=== PATIENT | male | born 1960 | race African-American/Black ===

== ENCOUNTER 2016-04-16 06:35 | Emergency (ER) | payer BC ==
[2016-04-16 06:51] VITALS: BMI 25.2
--- NOTE | 2016-04-16 06:53 | PDOC ---
History of Present Illness - General History Source: Patient Exam Limitations: No Limitations - History of Present Illness Initial Comments: 04/16/16 06:59 The patient is a 55-year-old male with a significant past medical history of GERD, who presents to the emergency department with approximately 7 days of cough. The cough began as a dry cough, and became productive of yellow sputum on Wednesday. On Wednesday, he developed subjective fever and chills, and began to see "streaks of blood" in the yellow sputum. He has never had a cough productive of phani blood. He denies travel outside of the [facility] in the past year and a half. Approximately one and one half years ago, he did travel to [place] for 10 days, something that he does approximately every 2 years. He denies weight loss. He denies night sweats. He was born in [place]. He had a negative PPD approximately 5 years ago, administered by his primary care physician. He has no known exposure to tuberculosis. The patient denies recent travel/surgeries/immobility, lower extremity edema, calf pain or tenderness, tobacco use, hormone use, personal or family history of thrombosis. 04/16/16 07:02 04/16/16 08:16 <Clayton Mcdonough - Last Filed: 04/16/16 08:23> <Marla Hugo - Last Filed: 04/16/16 08:24> - General Chief Complaint: Hemoptysis Stated Complaint: COUGHING BLOOD Time Seen by Provider: 04/16/16 06:52 Past History - Past Medical History CVA: No (vertigo) COPD: (CHRONIC BRONCHITIS) Disorders: Yes (NEPHROLITHIASIS S/P ESWL) HTN: Yes Kidney Stones: Yes - Surgical History Orthopedic Surgery: Yes (RIGHT KNEE ARTHROSCOPY) - Immunization History Immunization Up to Date: Yes - Psycho/Social/Smoking Cessation Hx Anxiety: No Suicidal Ideation: No Smoking Status: No Smoking History: Never smoked Have you smoked in the past 12 months: No Number of Cigarettes Smoked Daily: 0 Cigars Per Day: 0 Information on smoking cessation initiated: No Hx Alcohol Use: No Drug/Substance Use Hx: No Substance Use Type: None Hx Substance Use Treatment: No <Clayton Mcdonough - Last Filed: 04/16/16 08:23> <Marla Hugo - Last Filed: 04/16/16 08:24> - Past Medical History Allergies/Adverse Reactions: Allergies Allergy/AdvReac Type Severity Reaction Status Date / Time doxycycline Allergy Unknown Verified 04/16/16 06:48 Penicillins Allergy Unknown Verified 04/16/16 06:48 Home Medications: Ambulatory Orders Propranolol HCl 10 mg PO BID 12/09/15 Albuterol Sulfate [Proair Respiclick] 90 mcg IH Q4H PRN 12/25/15 Ranitidine HCl [Zantac] 150 mg PO DAILY 12/25/15 Beclomethasone Dipropionate [Qvar] 8.7 gm IH BID 04/16/16 Benzonatate [Tessalon Pearls -] 100 mg PO TID PRN #21 capsule 04/16/16 Prednisone [Deltasone -] 50 mg PO DAILY #5 tablet 04/16/16 Review of Systems - Review of Systems Comments:: 04/16/16 07:00 CONSTITUTIONAL: Present: See history of present illness Absent: diaphoresis, generalized weakness, malaise, loss of appetite HEENT: Present: Rhinorrhea, nasal congestion Absent: throat pain, throat swelling, difficulty swallowing, mouth swelling, ear pain, eye pain, visual Changes CARDIOVASCULAR: Absent: chest pain, loss of consciousness, palpitations, irregular heart rate, peripheral edema RESPIRATORY: Present: Cough, hemoptysis Absent: shortness of breath, dyspnea with exertion, orthopnea, wheezing, stridor GASTROINTESTINAL: Absent: abdominal pain, abdominal distension, nausea, vomiting, diarrhea, constipation, melena, hematochezia GENITOURINARY: Absent: dysuria, frequency, urgency, hesitancy, hematuria, flank pain, genital pain MUSCULOSKELETAL: Absent: myalgia, arthralgia, joint swelling SKIN: Absent: rash, itching, pallor HEMATOLOGIC/IMMUNOLOGIC: Absent: easy bleeding, easy bruising, lymphadenopathy, frequent infections ENDOCRINE: Absent: unexplained weight gain, unexplained weight loss, heat intolerance, cold intolerance NEUROLOGIC: Absent: headache, focal weakness or paresthesias, dizziness, unsteady gait, seizure, mental status changes, bladder or bowel incontinence PSYCHIATRIC: Absent: anxiety, depression, suicidal or homicidal ideation, hallucinations. 04/16/16 07:01 <Clayton Mcdonough - Last Filed: 04/16/16 08:23> *Physical Exam - Vital Signs Last Vital Signs Temp Pulse Resp BP Pulse Ox 97.6 F 80 20 139/79 100 04/16/16 06:49 04/16/16 06:49 04/16/16 06:49 04/16/16 06:49 04/16/16 06:49 - Physical Exam Comments: 04/16/16 07:01 GENERAL: Well developed, well nourished. Awake and alert. No acute distress. HEENT: Normocephalic, atraumatic. PERRLA, EOMI. No conjunctival pallor. Sclera are non- icteric. Moist mucous membranes. Oropharynx is clear. NECK: Supple. Full ROM. No JVD. Carotid pulses 2+ and symmetric, without bruits. No thyromegaly. No lymphadenopathy. CARDIOVASCULAR: Regular rate and rhythm. No murmurs, rubs, or gallops. Distal pulses are 2+ and symmetric. PULMONARY: Post inspiratory cough. No evidence of respiratory distress. Lungs clear to auscultation bilaterally. No wheezing, rales or rhonchi. ABDOMINAL: Soft. Non-tender. Non-distended. No rebound or guarding. No organomegaly. Normoactive bowel sounds. MUSCULOSKELETAL Normal range of motion at all joints. No bony deformities or tenderness. No CVA tenderness. EXTREMITIES: No cyanosis. No clubbing. No edema. No calf tenderness. SKIN: Warm and dry. Normal capillary refill. No rashes. No jaundice. NEUROLOGICAL: Alert, awake, appropriate. Cranial nerves 2-12 intact. No deficits to light touch and temperature in face, upper extremities and lower extremities. No motor deficits in the in face, upper extremities and lower extremities. Normoreflexic in the upper and lower extremities. Normal speech. Toes are down- going bilaterally. Gait is normal without ataxia. PSYCHIATRIC: Cooperative. Good eye contact. Appropriate mood and affect. <Clayton Mcdonough - Last Filed: 04/16/16 08:23> - Vital Signs Last Vital Signs Temp Pulse Resp BP Pulse Ox 97.6 F 80 20 139/79 100 04/16/16 06:49 04/16/16 06:49 04/16/16 06:49 04/16/16 06:49 04/16/16 06:49 <Marla Hugo - Last Filed: 04/16/16 08:24> ED Treatment Course - LABORATORY CBC & Chemistry Diagram: 04/16/16 07:05 04/16/16 07:05 <Clayton Mcdonough - Last Filed: 04/16/16 08:23> - LABORATORY CBC & Chemistry Diagram: 04/16/16 07:05 04/16/16 07:05 - ADDITIONAL ORDERS Additional order review: Laboratory Results 04/16/16 04/16/16 07:05 07:05 INR 1.19 H PTT (Actin FS) 29.8 Sodium 142 Potassium 3.5 Chloride 106 Carbon Dioxide 31 Anion Gap 5 L BUN 17 D Creatinine 1.2 Creat Clearance w eGFR > 60 Random Glucose 104 Calcium 8.7 Total Bilirubin 0.4 D AST 14 L D ALT 28 Alkaline Phosphatase 101 Total Protein 7.2 Albumin 3.6 04/16/16 07:05 RBC 4.09 MCV 99.7 H MCHC 33.3 RDW 13.0 MPV 9.2 Neutrophils % 62.4 Lymphocytes % 26.4 Monocytes % 10.6 H Eosinophils % 0.4 Basophils % 0.2 <Marla Hugo - Last Filed: 04/16/16 08:24> Medical Decision Making - Medical Decision Making 04/16/16 07:02 The patient is well-appearing and in no acute distress He has physical examination evidence of bronchospasm, as evidenced by post inspiratory cough Will obtain labs, chest x-ray Will administer duo neb 04/16/16 08:16 Symptoms much improved after nebulizer He states that he feels "completely better" and would like to go home Chest x-ray emergency Department interpretation: No acute cardiopulmonary disease 04/16/16 08:16 04/16/16 08:23 Labs noted Official chest x-ray reading noted Clinical impression: Bronchitis Cough I discussed the physical exam findings, ancillary test results and final diagnoses with the patient. I answered all of the patient's questions. The patient was satisfied with the care received and felt comfortable with the discharge plan and treatment plan. The patient will call their primary care physician within 24 hours to arrange follow-up and will return to the Emergency Department with any new, persistent or worsening symptoms. <Clayton Mcdonough - Last Filed: 04/16/16 08:23> - Medical Decision Making 04/16/16 08:24 Chest X-ray as reviewed by Dr. Yu reports no evidence of active pulmonary disease. <Marla Hguo - Last Filed: 04/16/16 08:24> *DC/Admit/Observation/Transfer <Clayton Mcdonough - Last Filed: 04/16/16 08:23> - Attestations Scribe Attestion: 04/16/16 08:24 Documentation prepared by Marla Hugo, acting as medical billing associate for Clayton Mcdonough MD. <Marla Hugo - Last Filed: 04/16/16 08:24> Diagnosis at time of Disposition: Bronchitis - Discharge Dispostion Disposition: HOME Condition at time of disposition: Improved - Prescriptions Prescriptions: Prednisone [Deltasone -] 50 mg PO DAILY #5 tablet Benzonatate [Tessalon Pearls -] 100 mg PO TID PRN #21 capsule PRN Reason: Cough - Referrals Referrals: Vic Valle [Primary Care Provider] - - Patient Instructions Printed Discharge Instructions: DI for Acute Bronchitis Additional Instructions: Return to the emergency department immediately with ANY new, persistent or worsening symptoms. You MUST call and follow up with your doctor tomorrow. Please make sure your doctor reviews the results of your emergency department evaluation. - Post Discharge Activity Work/School Note: Back to Work
[2016-04-16] MEDS ORDERED: ALBUTEROL SO4 2.5/IPRATROPIUM 0.5 INH SOL 3 ML VIAL.NEB. NEB ONE (06:58)
[2016-04-16 07:33] LABS: BASOPHIL 0.2 % (0-2.0); EOSINOPHIL 0.4 % (0-4.5); MCH 33.2 pg (25.7-33.7); MCHC 33.3 g/dl (32.0-35.9); MEAN CELL VOLUME 99.7 fl (80-96); MEAN PLT VOLUME 9.2 fl (7.5-11.1); NEUTROPHILS 62.4 % (42.8-82.8); PLATELET COUNT 152 K/MM3 (134-434); WHITE BLOOD COUNT 7.1 K/mm3 (4.0-10.0)
[2016-04-16 07:56] LABS: INR 1.19 (0.82-1.09); PROTHROMBIN TIME (PATIENT) 13.1 SEC (9.98-11.88)
[2016-04-16 07:58] LABS: ACTIVATED PTT 29.8 SECONDS (26.9-34.4)
[2016-04-16] MEDS ORDERED: predniSONE 20 MG TABLET (UD) PO ONE (08:18)
[2016-04-16 08:20] LABS: ALBUMIN 3.6 g/dl (3.4-5.0); ALK PHOS 101 U/L (45-117); ANION GAP 5 (8-16); BILIRUBIN,TOTAL 0.4 mg/dL (0.2-1.0); CALCIUM 8.7 mg/dL (8.5-10.1); CO2 31 mmol/L (21-32); CREATININE 1.2 mg/dL (0.7-1.3); GLUCOSE,RANDOM 104 mg/dL (74-106); SGOT/AST 14 U/L (15-37); SGPT/ALT 28 U/L (12-78); TOT PROT 7.2 g/dl (6.4-8.2)
[2016-04-16 10:32] VITALS: BP 132/68; PULSE 85; TEMP 98
== END 2016-04-16 08:22 | disposition home or self-care (01) ==
LOC: JER 06:35
DX: J20.9 Acute bronchitis, unspecified (principal)
CPT/HCPCS: 36415; 71020-TC; 80053; 85025; 85610; 85730; 99282-25

== ENCOUNTER 2016-05-26 06:51 | Day surgery (SDC) | payer BC ==
[2016-05-21 17:42] VITALS: BMI 23.6
[2016-05-26] MEDS ORDERED: COCAINE HCL 4% TOPICAL SOLUTION 4 ML BOTTLE TP ONE ×2 (07:30→08:24)
[2016-05-26] MEDS ORDERED: PROPOFOL 20 ML ONE (07:34)
[2016-05-26] MEDS ORDERED: MIDAZOLAM HCL 2 MG/2 ML SINGLE DOSE VIAL ONE (07:34)
[2016-05-26] MEDS ORDERED: SUCCINYLCHOLINE CHLORIDE 200 MG/10 ML VIAL ONE (07:34)
[2016-05-26] MEDS ORDERED: LIDOCAINE HCL/PF 2% SDV 5ML VIAL ONE (07:37)
[2016-05-26] MEDS ORDERED: DEXAMETHASONE SOD PHOSPHATE 4 MG/1 ML VIAL ONE (07:37)
[2016-05-26] MEDS ORDERED: LIDOCAINE 1%/EPI 1:100000 (50 ML MULTI DOSE VIAL) ONE (07:47)
--- NOTE | 2016-05-26 08:01 | HP ---
Admitting History and Physical - Primary Care Physician PCP: Vic Valle - Admission Chief Complaint: Chronic sinus infections History Source: Patient, Medical Record Limitations to Obtaining History: No Limitations - Past Medical History CONNIE SCRATCHER: Yes: Migraine Cardiovascular: No: AFIB, Aneurysm, Aortic Insufficiency, Aortic Stenosis, CAD, CHF, Deep Vein Thrombosis, HTN, Hyperlipdemia, DC, Mitral Insufficiency, Mitral Stenosis, Murmur, Pulmonary Hypertension, Other Pulmonary: No: Asthma, Bronchitis, Cancer, COPD, O2 Dependent, Pneumonia, Previously Intubated, Pulmonary Embolus, Pulmonary Fibrosis, Sleep Apnea, Other Gastrointestinal: No: Ascites, Cancer, Constipation, Crohn's Disease, Diverticulitis, Diverticulosis, Esophageal Varices, Gastritis, GERD, GI Bleed, Hemorrhoids, Hiatal Hernia, Inflamatory Bowel Disease, Irritable Bowel Disease, Pancreatitis, Peptic Ulcer Disease, Ulcerative Colitis, Other Hepatobiliary: No: Cirrhosis, Cholelithiasis, Cholecystitis, Choledocholithiasis , Hepatitis A, Hepatitis B, Hepatitis C, Other Renal/: No: Renal Failure, Renal Inusuff, BPH, Cancer, Hematuria, Hemodialysis , Neurogenic Bladder, Renal Calculi, UTI, Other Heme/Onc: No: Anemia, B12 Deficiency, Bleeding Disorder, Cancer, Current Chemotherapy, Current Radiation Therapy, Hemochromatosis, Hypercoaguable State, Myeloproliferative Synd, Sickle Cell Disease, Sickle Cell Trait, Thrombocytopenia, Other Infectious Disease: No: AIDS, C-Diff, Herpes Zoster, HIV, MRSA, STD's, Tuberculosis, VREF, Other Psych: No: Addictions, Anxiety, Bipolar, Depression, Panic, Psychosis, Schizophrenia, Other Musculoskeletal: No: Bursitis, Chronic low back pain, Hemiparesis, Hemiplegia, Osteoarthritis, Paraplegia, Other Rheumatology: No: Fibromyalgia, Gout, Lupus, Rheumatoid Arthritis, Sarcoidosis, Vasculitis, Other ENT: Yes: Sinusitis - Smoking History Smoking history: Never smoked Have you smoked in the past 12 months: No Aproximately how many cigarettes per day: 0 - Alcohol/Substance Use Hx Alcohol Use: No Home Medications - Allergies Allergies/Adverse Reactions: Allergies Allergy/AdvReac Type Severity Reaction Status Date / Time doxycycline Allergy Severe "HIVES" Verified 05/26/16 07:23 Penicillins Allergy Severe "HIVES" Verified 05/26/16 07:23 - Home Medications Home Medications: Ambulatory Orders Propranolol HCl 10 mg PO BID 12/09/15 Omeprazole 20 mg PO DAILY 05/21/16 Physical Examination Vital Signs: Vital Signs Temperature 97.6 F 05/26/16 07:22 Pulse Rate 70 05/26/16 07:22 Respiratory Rate 20 05/26/16 07:22 Blood Pressure 136/90 05/26/16 07:22 O2 Sat by Pulse Oximetry (%) 98 05/26/16 07:18 Constitutional: Yes: Well Nourished Eyes: Yes: WNL HENT: Yes: WNL, Other (turbinate hypertrophy) Neck: Yes: WNL Cardiovascular: Yes: WNL Respiratory: Yes: WNL Gastrointestinal: Yes: WNL Musculoskeletal: Yes: WNL Extremities: Yes: WNL Problem List - Problems (1) Sinusitis Assessment/Plan: For improvement of sinus drainage Code(s): J32.9 - CHRONIC SINUSITIS, UNSPECIFIED Qualifiers: Sinusitis location: other Chronicity: acute Recurrence: recurrent Qualified Code(s): J01.81 - Other acute recurrent sinusitis
[2016-05-26] MEDS ORDERED: LEVOFLOXACIN 500 MG PREMIX BAG IVPB ONE (08:21)
[2016-05-26] MEDS ORDERED: LEVOFLOXACIN 500 MG IVPB 100 ML IVPB ONE (08:21)
[2016-05-26] MEDS ORDERED: LIDOCAINE 1%/EPI 1:100000 (50 ML MULTI DOSE VIAL) INF ONE (08:23)
[2016-05-26] MEDS ORDERED: BACITRACIN 30 GM TUBE TOPICAL OINTMENT ONE (08:48)
[2016-05-26] MEDS ORDERED: BACITRACIN 30 GM TUBE TOPICAL OINTMENT TP ONE (08:49)
[2016-05-26] MEDS ORDERED: oxyCODONE HCL 5 MG TABLET PO PRN (09:19)
[2016-05-26] MEDS ORDERED: ONDANSETRON 4 MG/2 ML VIAL IVPUSH PRN (09:19)
[2016-05-26] MEDS ORDERED: LACTATED RINGERS SOLUTION 1,000 ML IV SCH (09:30)
[2016-05-26 11:19] VITALS: TEMP 97.8
[2016-05-26 11:55] VITALS: BP 130/80; PULSE 78
--- NOTE | 2016-06-01 21:24 | OP ---
DATE OF OPERATION: 05/26/2016 PREOPERATIVE DIAGNOSIS: Recurrent sinusitis and chronic sinusitis, turbinate hypertrophy, nasal congestion. POSTOPERATIVE DIAGNOSIS: Recurrent sinusitis and chronic sinusitis, turbinate hypertrophy, nasal congestion. SURGEON: Teo Teran MD ANESTHESIA: General. PROCEDURE: Bilateral frontal sinus balloon dilation, bilateral maxillary antrostomy and tissue removal, inferior turbinate outfracturing and cautery, sinus navigation. PROCEDURE DETAILS: Patient was brought in to the operating room, placed under general anesthesia. The sinus navigation instrument was calibrated on the patient's after the nose was decongested with 4% topical cocaine and injection of 1% lidocaine with 1:100,000 epinephrine. A left frontal seeker was used to cannulate the frontal sinus on the left side and a frontal sinus balloon was insufflated twice with 5-second expansion each time. The right frontal sinus was then cannulated with a seeker and then balloon dilated twice with a 5-second insufflation. Cottonoids were placed into both frontal recesses and the left cottonoid was removed and then the maxillary sinus was cannulated using a Medtronic-guided balloon. Two insufflations were performed on the left side and cottonoids were placed back into the middle meatus. Balloon dilation was performed on the right side with Medtronic balloon with 2 separate insufflations, after which a curved suction was used to cannulate the left maxillary sinus under visualization and using the guidance. The contents of the maxillary sinus were suctioned and a lavage was performed with 2 separate instillations of saline. The contents were suctioned basically, then the right maxillary sinus was cannulated and irrigated twice with saline. The inferior turbinates were outfractured with a long nasal speculum and bipolar intermittent cautery was used to cauterize both inferior turbinates, 1st the left, then the right, with 3 separate passes on each side with a setting of 4. Bacitracin was instilled into both nostrils and the patient was awakened in the operating room and brought to the recovery room in stable condition. TEO TERAN M.D. [id number]
== END 2016-05-26 11:54 | disposition home or self-care (01) ==
LOC: JASU-SURG 06:51
PROVIDERS: ATTEND Otolaryngology
PROC: 09SL8ZZ Reposition Nasal Turbinate, Via Natural or Artificial Opening Endoscopic (ICD-10-PCS; 2016-05-26)
PROC: 099R4ZZ Drainage of Left Maxillary Sinus, Percutaneous Endoscopic Approach (ICD-10-PCS; 2016-05-26)
PROC: 099Q4ZZ Drainage of Right Maxillary Sinus, Percutaneous Endoscopic Approach (ICD-10-PCS; 2016-05-26)
PROC: 097G8ZZ Dilation of Left Eustachian Tube, Via Natural or Artificial Opening Endoscopic (ICD-10-PCS; principal; 2016-05-26 08:00)
PROC: 097F8ZZ Dilation of Right Eustachian Tube, Via Natural or Artificial Opening Endoscopic (ICD-10-PCS; 2016-05-26 08:00)
DX: J32.8 Other chronic sinusitis (principal); J34.3 Hypertrophy of nasal turbinates; R09.81 Nasal congestion
CPT/HCPCS: 94760

== ENCOUNTER 2016-06-22 07:25 | Emergency (ER) | payer BC ==
--- NOTE | 2016-06-22 07:59 | PDOC ---
History of Present Illness - General History Source: Patient, Old Records Exam Limitations: No Limitations - History of Present Illness Initial Comments: 06/22/16 08:05 The patient is a 55-year-old man, with a significant past medical history of hypertension, vertigo, migraine headaches, nephrolithiasis status post ESWL, and bronchitis who presents to the emergency department via walk-in for further evaluation of a persistent cough for the past 2 weeks. No fever, chills, generalized weakness. As per patient, he recently underwent a sinus surgery, approximately 2 weeks ago. Post procedure, he noted that he had endorsed an intermittent non-productive cough. He states that he ultimately saw blood when he blew his nose and when he coughed. He followed up with his doctor, and informed him about his new symptoms. He states that he was informed that his symptoms are typical and normal post procedure and was recommended saline drops and placed on antibiotics. His symptoms worsened when he started to feel an intermittent non-radiating mid-sternal chest pressure sensation, yesterday, while laying down and watching a sports game. No fall, trauma, strenuous activity. He states that his chest pain is worst when he breathes. He also reports experiencing his typical migraine headaches, and took two Tylenol tablets which helps with his headache and helped minimally with his chest pain. Patient had a recent echocardiogram and stress test performed on August of 2015 which revealed a mild concentric left ventricular hypertrophy, mild mitral regurgitation, trace tricuspid regurgitation and trace pulmonic valvular regurgitation and his stress test was indicative for a diaphragmatic attenuation artficat without ischemia wth a LVEF of 56% No history of myocardial infarctions and heart disease. No lightheadedness, visual changes, dizziness, neck pain, jaw pain, headaches, shortness of breath, rhinorrhea, nasal congestion, ear pain. No abdominal pain, nausea, vomiting, diarrhea. Allergies: Doxycycline. Penicillin Past Surgical History: Right knee arthroscopy. Social History: No tobacco, ETOH or recreational drug use. Primary Care Physician: Jayant Gomez NP [phone] <Mora Cristina - Last Filed: 06/22/16 08:28> - General History Source: Patient, Old Records Exam Limitations: No Limitations <Sharyn Cooper - Last Filed: 06/22/16 09:40> - General Chief Complaint: Chest Pain Stated Complaint: CHEST PAIN Time Seen by Provider: 06/22/16 07:52 Past History <CristinaCastro maldonadoine - Last Filed: 06/22/16 08:28> - Past Medical History CVA: (vertigo) COPD: Yes (CHRONIC BRONCHITIS) Disorders: Yes (NEPHROLITHIASIS S/P ESWL) HTN: Yes Kidney Stones: Yes - Surgical History Orthopedic Surgery: Yes (RIGHT KNEE ARTHROSCOPY) - Immunization History Immunization Up to Date: Yes - Psycho/Social/Smoking Cessation Hx Anxiety: No Suicidal Ideation: No Smoking Status: No Smoking History: Never smoked Have you smoked in the past 12 months: No Number of Cigarettes Smoked Daily: 0 Cigars Per Day: 0 Hx Alcohol Use: No Drug/Substance Use Hx: No Substance Use Type: None Hx Substance Use Treatment: No <Sharyn Cooper - Last Filed: 06/22/16 09:40> - Past Medical History Allergies/Adverse Reactions: Allergies Allergy/AdvReac Type Severity Reaction Status Date / Time doxycycline Allergy Severe "HIVES" Verified 06/22/16 07:42 Penicillins Allergy Severe "HIVES" Verified 06/22/16 07:42 Home Medications: Ambulatory Orders Propranolol HCl 10 mg PO BID 12/09/15 Beclomethasone Dipropionate [Qvar] 8.7 gm IH PRN 06/22/16 Ibuprofen 800 mg PO QID #30 tablet 06/22/16 Review of Systems - Review of Systems Able to Perform ROS?: Yes Comments:: 06/22/16 08:05 GENERAL/CONSTITUTIONAL: No fever or chills. No weakness. HEAD, EYES, EARS, NOSE AND THROAT: No change in vision. No ear pain or discharge. No sore throat. CARDIOVASCULAR: Yes: Chest Pain. No chest pain RESPIRATORY: Yes: Cough. Hemoptysis. No wheezing. GASTROINTESTINAL: No nausea, vomiting, diarrhea or constipation. GENITOURINARY: No dysuria, frequency, or change in urination. MUSCULOSKELETAL: No joint or muscle swelling or pain. No neck or back pain. SKIN: No rash NEUROLOGIC: Yes: Headache. No lss of consciousness, or change in strength/ sensation. ENDOCRINE: No increased thirst. No abnormal weight change. HEMATOLOGIC/LYMPHATIC: No anemia, easy bleeding, or history of blood clots. ALLERGIC/IMMUNOLOGIC: No hives or skin allergy. <Cristina,Mora - Last Filed: 06/22/16 08:28> *Physical Exam - Vital Signs Last Vital Signs Temp Pulse Resp BP Pulse Ox 97.7 F 79 18 150/93 100 06/22/16 07:25 06/22/16 07:25 06/22/16 07:25 06/22/16 07:25 06/22/16 07:25 - Physical Exam Comments: 06/22/16 08:06 GENERAL: Awake, alert, and fully oriented, in no acute distress HEAD: No signs of trauma EYES: PERRLA, EOMI, sclera anicteric, conjunctiva clear ENT: Auricles normal inspection, hearing grossly normal, nares patent, oropharynx clear without exudates. Moist mucosa NECK: Normal ROM, supple, no lymphadenopathy, JVD, or masses CHEST: There is some tenderness to palpation at the lower sternal border. LUNGS: Limited inspiratory effort but otherwise clear to auscultation bilaterally. No wheezes, and no crackles HEART: Regular rate and rhythm, normal S1 and S2, no murmurs, rubs or gallops ABDOMEN: Soft, nontender, normoactive bowel sounds. No guarding, no rebound. No masses EXTREMITIES: Normal range of motion, no edema. No clubbing or cyanosis. No cords, erythema, or tenderness NEUROLOGICAL: Cranial nerves II through XII grossly intact. Normal speech, normal gait. <IbethMora - Last Filed: 06/22/16 08:28> - Vital Signs Last Vital Signs Temp Pulse Resp BP Pulse Ox 97.7 F 79 18 150/93 100 06/22/16 07:25 06/22/16 07:25 06/22/16 07:25 06/22/16 07:25 06/22/16 07:25 <Sharyn Cooper - Last Filed: 06/22/16 09:40> ED Treatment Course - LABORATORY CBC & Chemistry Diagram: 06/22/16 08:05 06/22/16 08:05 - RADIOLOGY Radiograph Interpretation: 06/22/16 08:28 EXAM: RAD/CHEST X-RAY PORTABLE IMPRESSION: Frontal view of the chest is provided. Lung ortiz appear clear without infiltrate or effusion. Cardiomediastinal silhouette is within normal limits. Visualized bony structures appear intact. <Mora Cristina - Last Filed: 06/22/16 08:28> - LABORATORY CBC & Chemistry Diagram: 06/22/16 08:05 06/22/16 08:05 <Sharyn Cooper - Last Filed: 06/22/16 09:40> Medical Decision Making - Medical Decision Making 06/22/16 08:55 55-year-old male with history of sinusitis, hypertension who presents to the emergency department with complaints of 1 week history of cough and chest pain since yesterday that is constant and worse with deep inspiration and cough. Differential diagnosis includes but is not limited to: Pneumonia, influenza, musculoskeletal strain, ACS, pneumothorax, GERD, rib fracture. Plan: 1. EKG 2. Chest x-ray 3. Influenza PCR 4. Labs 5. Pain management 6. Observe and reevaluate 06/22/16 09:36 Addendum: The patient received Toradol and is feeling improved. The EKG was unremarkable and the labs were significant for a negative troponin as well as a negative influenza PCR. The chest x-ray is negative for acute pulmonary disease. The plan is to discharge the patient home with ibuprofen 800 mg every 6 -8 hours as needed for pain, follow-up with primary care physician within one week and return to the emergency department if symptoms persist, worsen, or new symptoms arise. <Sharyn Cooper - Last Filed: 06/22/16 09:40> *DC/Admit/Observation/Transfer - Attestations Scribe Attestion: 06/22/16 08:06 Documentation prepared by Mora Cristina, acting as medical affairs specialist for Sharyn Cooper MD. <Mora Cristina - Last Filed: 06/22/16 08:28> - Discharge Dispostion Admit: No - Attestations Physician Attestion: 06/22/16 08:00 I, Dr. Sharyn Cooper, attest that the scribes documentation that appears above has been prepared under my direction and personally reviewed by me in its entirety. I confirmed that the note above accurately reflects all work, treatment, procedures, and medical decision-making performed by me. <Sharyn Cooper - Last Filed: 06/22/16 09:40> Diagnosis at time of Disposition: Chest pain - Discharge Dispostion Disposition: HOME Condition at time of disposition: Stable - Prescriptions Prescriptions: Ibuprofen 800 mg PO QID #30 tablet - Referrals Referrals: Jayant Gomez [Primary Care Provider] - - Patient Instructions Printed Discharge Instructions: DI for Atypical Chest Pain Additional Instructions: You may take ibuprofen 800 mg every 6-8 hours as needed for pain in your chest. Please follow-up with your primary care physician within the next week and return to the emergency department if your symptoms persist, worsen, or new symptoms arise.
[2016-06-22] MEDS ORDERED: KETOROLAC TROMETHAMINE 30 MG/1 ML VIAL IVPUSH ONE (08:01)
[2016-06-22] MEDS ORDERED: KETOROLAC TROMETHAMINE 30 MG/1 ML VIAL ONE (08:09)
[2016-06-22 08:17] VITALS: TEMP 97.7; BMI 24.7
[2016-06-22 08:21] LABS: BASOPHIL 0.4 % (0-2.0); MCH 32.8 pg (25.7-33.7); MCHC 33.1 g/dl (32.0-35.9); MEAN PLT VOLUME 9.2 fl (7.5-11.1); NEUTROPHILS 49.1 % (42.8-82.8); PLATELET COUNT 146 K/MM3 (134-434); RDW 14.1 % (11.9-15.9); WHITE BLOOD COUNT 3.4 K/mm3 (4.0-10.0)
[2016-06-22 08:55] LABS: ALBUMIN 3.6 g/dl (3.4-5.0); ALK PHOS 113 U/L (45-117); ANION GAP 9 (8-16); BILIRUBIN,TOTAL 0.4 mg/dL (0.2-1.0); CALCIUM 8.9 mg/dL (8.5-10.1); CO2 28 mmol/L (21-32); CREATININE 1.3 mg/dL (0.7-1.3); GLUCOSE,RANDOM 124 mg/dL (74-106); SGOT/AST 19 U/L (15-37); SGPT/ALT 26 U/L (12-78); TOT PROT 7.2 g/dl (6.4-8.2)
[2016-06-22 08:57] LABS: TROPONIN I < 0.02 ng/ml (0.00-0.05)
[2016-06-22 09:54] VITALS: BP 125/80; PULSE 74
--- NOTE | 2016-06-26 10:13 | EKG ---
Test Reason : Blood Pressure : / mmHG Vent. Rate : 078 BPM Atrial Rate : 078 BPM P-R Int : 200 ms QRS Dur : 108 ms QT Int : 378 ms P-R-T Axes : 069 -57 049 degrees QTc Int : 430 ms NORMAL SINUS RHYTHM POSSIBLE LEFT ATRIAL ENLARGEMENT INCOMPLETE RIGHT BUNDLE BRANCH BLOCK LEFT ANTERIOR FASCICULAR BLOCK ABNORMAL ECG Confirmed by INGRIS RICE MD ([id number]) on 06/26/2016 10:12:28 AM Referred By: Confirmed By:INGRIS RICE MD
== END 2016-06-22 09:53 | disposition home or self-care (01) ==
LOC: JER 07:25
PROC: 3E0333Z Introduction of Anti-inflammatory into Peripheral Vein, Percutaneous Approach (ICD-10-PCS; principal; 2016-06-22)
DX: R07.89 Other chest pain (principal); I10 Essential (primary) hypertension; R42 Dizziness and giddiness; G43.909 Migraine, unspecified, not intractable, without status migrainosus; Z87.442 Personal history of urinary calculi
CPT/HCPCS: 36415; 71010-TC; 80053; 82550; 82553; 84484; 85025; 87804; 93005; 93010; 99283-25

== ENCOUNTER 2016-09-07 12:03 | Emergency (ER) | payer BC ==
[2016-09-07 12:14] VITALS: TEMP 97.7; BMI 24.3
--- NOTE | 2016-09-07 14:17 | PDOC ---
History of Present Illness - General History Source: Patient Exam Limitations: No Limitations - History of Present Illness Initial Comments: 09/07/16 16:33 The patient is a 55 year old male with a significant past medical history of hypertension, vertigo, migraine headaches, nephrolithiasis status post ESWL, and bronchitis, who present to the ED with an episode of lightheadedness while at work today. Patient states it lasted for an hour. He denies chest pain, SOB.He also complains of feeling warm all over his body. He states he has never had similar symptoms in the past. He denies syncope. Denies nausea vomiting, diarrhea abdominal pain. Denies dysuria, hematuria, frequency. <Guero Moreira - Last Filed: 09/07/16 16:32> <Penelope Thompson - Last Filed: 09/07/16 18:04> - General Chief Complaint: Lightheaded Stated Complaint: DIZZINESS, BLURRY VISION Time Seen by Provider: 09/07/16 13:02 Past History <Guero Moreira - Last Filed: 09/07/16 16:32> - Past Medical History CVA: (vertigo) COPD: Yes (CHRONIC BRONCHITIS) Disorders: Yes (NEPHROLITHIASIS S/P ESWL) HTN: Yes Kidney Stones: Yes - Surgical History Orthopedic Surgery: Yes (RIGHT KNEE ARTHROSCOPY) - Immunization History Immunization Up to Date: Yes - Psycho/Social/Smoking Cessation Hx Anxiety: No Suicidal Ideation: No Smoking Status: No Smoking History: Never smoked Have you smoked in the past 12 months: No Number of Cigarettes Smoked Daily: 0 Cigars Per Day: 0 Information on smoking cessation initiated: No Hx Alcohol Use: No Drug/Substance Use Hx: No Substance Use Type: None Hx Substance Use Treatment: No <Penelope Thompson - Last Filed: 09/07/16 18:04> - Past Medical History Allergies/Adverse Reactions: Allergies Allergy/AdvReac Type Severity Reaction Status Date / Time doxycycline Allergy Severe "HIVES" Verified 09/07/16 12:11 Penicillins Allergy Severe "HIVES" Verified 09/07/16 12:11 Home Medications: Ambulatory Orders Propranolol HCl 10 mg PO BID 12/09/15 Beclomethasone Dipropionate [Qvar] 8.7 gm IH PRN 06/22/16 Ibuprofen 800 mg PO QID #30 tablet 06/22/16 Review of Systems - Review of Systems Able to Perform ROS?: Yes Comments:: 09/07/16 16:33 GENERAL/CONSTITUTIONAL: No fever or chills. No weakness. HEAD, EYES, EARS, NOSE AND THROAT: No change in vision. No ear pain or discharge. No sore throat. CARDIOVASCULAR: No chest pain or shortness of breath. RESPIRATORY: No cough, wheezing, or hemoptysis. GASTROINTESTINAL: No nausea, vomiting, diarrhea or constipation. GENITOURINARY: No dysuria, frequency, or change in urination. MUSCULOSKELETAL: No joint or muscle swelling or pain. No neck or back pain. SKIN: No rash NEUROLOGIC: +lightheadedness. No headache, vertigo, loss of consciousness, or change in strength/sensation. ENDOCRINE: No increased thirst. No abnormal weight change. HEMATOLOGIC/LYMPHATIC: No anemia, easy bleeding, or history of blood clots. ALLERGIC/IMMUNOLOGIC: No hives or skin allergy. <Guero Moreira - Last Filed: 09/07/16 16:32> *Physical Exam - Vital Signs Last Vital Signs Temp Pulse Resp BP Pulse Ox 97.7 F 90 18 153/97 100 09/07/16 12:11 09/07/16 12:11 09/07/16 12:11 09/07/16 12:11 09/07/16 12:11 - Physical Exam Comments: 09/07/16 16:34 GENERAL: Awake, alert, and fully oriented, in no acute distress HEAD: No signs of trauma EYES: PERRLA, EOMI, sclera anicteric, conjunctiva clear ENT: Auricles normal inspection, hearing grossly normal, nares patent, oropharynx clear without exudates. Moist mucosa NECK: Normal ROM, supple, no lymphadenopathy, JVD, or masses LUNGS: Breath sounds equal, clear to auscultation bilaterally. No wheezes, and no crackles HEART: Regular rate and rhythm, normal S1 and S2, no murmurs, rubs or gallops ABDOMEN: Soft, nontender, normoactive bowel sounds. No guarding, no rebound. No masses EXTREMITIES: Normal range of motion, no edema. No clubbing or cyanosis. No cords, erythema, or tenderness NEUROLOGICAL: Cranial nerves II through XII grossly intact. Normal speech, normal gait SKIN: Warm, Dry, normal turgor, no rashes or lesions noted. <Guero Moreira - Last Filed: 09/07/16 16:32> - Vital Signs Last Vital Signs Temp Pulse Resp BP Pulse Ox 97.7 F 90 18 153/97 100 09/07/16 12:11 09/07/16 12:11 09/07/16 12:11 09/07/16 12:11 09/07/16 12:11 <Penelope Thompson - Last Filed: 09/07/16 18:04> ED Treatment Course - LABORATORY CBC & Chemistry Diagram: 09/07/16 13:16 09/07/16 13:16 <Guero Moreira - Last Filed: 09/07/16 16:32> - LABORATORY CBC & Chemistry Diagram: 09/07/16 13:16 09/07/16 13:16 <Penelope Thompson - Last Filed: 09/07/16 18:04> *DC/Admit/Observation/Transfer - Attestations Scribe Attestion: 09/07/16 16:34 Documentation prepared by Guero Moreira, acting as medical administrative technician for Penelope Thompson MD, . <Guero Moreira - Last Filed: 09/07/16 16:32> - Discharge Dispostion Admit: No <Penelope Thompson - Last Filed: 09/07/16 18:04> Diagnosis at time of Disposition: Dizziness - Discharge Dispostion Disposition: HOME Condition at time of disposition: Good - Referrals Referrals: Vic Valle [Primary Care Provider] - - Post Discharge Activity Work/School Note: Back to Work
[2016-09-07 15:51] LABS: BASOPHIL 0.4 % (0-2.0); EOSINOPHIL 0.9 % (0-4.5); MCH 32.6 pg (25.7-33.7); MCHC 33.1 g/dl (32.0-35.9); MEAN CELL VOLUME 98.3 fl (80-96); MEAN PLT VOLUME 9.3 fl (7.5-11.1); NEUTROPHILS 42.6 % (42.8-82.8); PLATELET COUNT 145 K/MM3 (134-434); RDW 13.3 % (11.9-15.9); WHITE BLOOD COUNT 4.1 K/mm3 (4.0-10.0)
[2016-09-07 16:17] LABS: ALBUMIN 4.2 g/dl (3.4-5.0); ANION GAP 8 (8-16); BILIRUBIN,TOTAL 0.4 mg/dL (0.2-1.0); CALCIUM 9.2 mg/dL (8.5-10.1); CO2 31 mmol/L (21-32); COCKROFT - GAULT 84.67; GLUCOSE,RANDOM 93 mg/dL (74-106); SGOT/AST 17 U/L (15-37); SGPT/ALT 32 U/L (12-78)
[2016-09-07 16:19] LABS: ALK PHOS 123 U/L (45-117); TROPONIN I < 0.02 ng/ml (0.00-0.05)
[2016-09-07] MEDS ORDERED: ONDANSETRON 4 MG TABLET PO ONE (17:24)
[2016-09-07] MEDS ORDERED: ONDANSETRON *ODT* 4 MG TABLET ONE (17:27)
[2016-09-07 17:35] VITALS: BP 156/93; PULSE 62
--- NOTE | 2016-09-08 11:47 | EKG ---
Test Reason : Blood Pressure : / mmHG Vent. Rate : 061 BPM Atrial Rate : 061 BPM P-R Int : 196 ms QRS Dur : 094 ms QT Int : 418 ms P-R-T Axes : 065 -38 025 degrees QTc Int : 420 ms NORMAL SINUS RHYTHM POSSIBLE LEFT ATRIAL ENLARGEMENT LEFT AXIS DEVIATION ABNORMAL ECG WHEN COMPARED WITH ECG OF 22-JUN-2016 07:33, NO SIGNIFICANT CHANGE WAS FOUND Confirmed by KALEB CEBALLOS, ERLIN ([id number]) on 09/08/2016 11:46:48 AM Referred By: Confirmed By:ERLIN MANUEL MD
== END 2016-09-07 18:54 | disposition home or self-care (01) ==
LOC: JER 12:03
DX: R42 Dizziness and giddiness (principal); I10 Essential (primary) hypertension; G43.909 Migraine, unspecified, not intractable, without status migrainosus; J42 Unspecified chronic bronchitis; Z87.442 Personal history of urinary calculi
CPT/HCPCS: 36415; 80053; 82550; 82553; 84484; 85025; 93005; 93010; 99281-25

== ENCOUNTER 2017-01-15 07:50 | Emergency (ER) | payer BC ==
[2017-01-15 07:56] VITALS: TEMP 98.2; BMI 23.8
--- NOTE | 2017-01-15 08:38 | PDOC ---
History of Present Illness - General Chief Complaint: Blood Pressure Problem Stated Complaint: HIGH BLOOD PRESSURE,DIZZINESS Time Seen by Provider: 01/15/17 08:31 History Source: Patient Exam Limitations: No Limitations - History of Present Illness Initial Comments: 01/15/17 08:32 Patient is a 56 year old male with history of HTN, vertigo, migrane headaches and GERD presenting with elevated BP since morning and worsening pre-syncope. Patient felt strange on waking and his BP was 179/104 despite being compliant with his medication (nl 130/80 on medication). He went to work but felt "dizzy" (described as weak and lightheaded and near blacking out) every time he stood up and the dizziness was was only relieved by sitting down. Patient also endorses blurry vision that is different than the normal visual aura he gets with his migranes and a headache that is bilateral in the temples and ears that migrates back and forth from right to left. Patient states he has been having headaches and dizziness for months and is currently being worked up my a neurologist (Dr. Ruvalcaba) and receives facial botox injections for his migraines. His last injection was on 12/30/2016, He completed an MRI-head on Wednesday that was ordered by Dr. Ruvalcaba. PCP: Dr. Chung Neuro: Dr. Ruvalcaba Past History - Past Medical History Allergies/Adverse Reactions: Allergies Allergy/AdvReac Type Severity Reaction Status Date / Time doxycycline Allergy Severe "HIVES" Verified 01/15/17 07:53 Penicillins Allergy Severe "HIVES" Verified 01/15/17 07:53 Home Medications: Ambulatory Orders Propranolol HCl 10 mg PO BID 12/09/15 CVA: (vertigo) COPD: Yes (CHRONIC BRONCHITIS) Disorders: Yes (NEPHROLITHIASIS S/P ESWL) HTN: Yes Kidney Stones: Yes - Surgical History Orthopedic Surgery: Yes (RIGHT KNEE ARTHROSCOPY) - Immunization History Immunization Up to Date: Yes - Suicide/Smoking/Psychosocial Hx Smoking Status: No Smoking History: Never smoked Have you smoked in the past 12 months: No Number of Cigarettes Smoked Daily: 0 Cigars Per Day: 0 Hx Alcohol Use: No Drug/Substance Use Hx: No Substance Use Type: None Hx Substance Use Treatment: No Review of Systems - Review of Systems Able to Perform ROS?: Yes Comments:: GEN: Denies fever, chills, recent illness HEENTM: Endorses intermittent blurry vision, ear pain; Denies sore throat, neck pain, changes in vision, changes in hearing, tinnitus Respiratory: Denies cough, wheezing, shortness of breath Cardiac: Endorses lightheadedness; Denies chest pain, palpitations, diaphoresis ABD/GI: Denies abdominal pain, nausea, vomiting, diarrhea, constipation : Denies dysuria, burning on urination, increased frequency of urination Musculoskeletal: Denies pain and swelling of muscles and joints Integumentary: Denies rashes, bruises Neurological: Endorses temporal BLANCHARD, weakness, dizziness; Denies loss of consciousness, tingling, numbness Hematologic/Lymphatic: Denies anemia, easy bleeding, history of blood clots. All Other Systems Reviewed and Negative Is the patient limited Swazi proficient: No *Physical Exam - Vital Signs Last Vital Signs Temp Pulse Resp BP Pulse Ox 98.2 F 80 18 152/98 100 01/15/17 07:54 01/15/17 07:54 01/15/17 07:54 01/15/17 07:54 01/15/17 07:54 - Physical Exam Comments: GENERAL: AAOx3, nourished and generally well appearing, NAD HEAD: NCAT EYES: PERRLA, EOMI, sclera anicteric, conjunctiva clear ENT: Auricles normal inspection, hearing grossly normal, TM pearly and intact, moderate cerumen in canals, nares patent, no nasal discharge, no congestion, oropharynx clear without exudates, MMM NECK: supple, normal ROM, no LAD, no JVD, no masses RESP: speaking in full sentences, lungs CTAB, symmetrical chest expansion, no respiratory distress HEART: RRR, normal S1-S2, 3+ systolic murmur at left sternal border, peripheral pulses normal and equal bilaterally ABDOMEN: soft, NTND, nlBSx4, no guarding, no rebound, no masses MUSCULOSKELETAL: no CVA Tenderness EXTREMITIES: normal inspection, moving all extremities, full ROM, strength 5/5, sensation grossly intact NEUROLOGICAL: CN II-XII grossly intact, normal speech, normal gait, no focal sensorimotor deficits SKIN: warm, dry, normal turgor, no rashes or lesions noted. ED Treatment Course - LABORATORY CBC & Chemistry Diagram: 01/15/17 09:45 01/15/17 09:45 Medical Decision Making - Medical Decision Making 01/15/17 09:16 56 yo male with unexplained history of pre-syncope, BLANCHARD and HTN for many months. Ddx includes but is not limited to ACS, cardiac arrhythmias, aortic stenosis, carotid stenosis, migrane headache, Fluids Pain management CBC/CMP/Cardiac enzymes CXR EKG Discuss case with PCP and Neurologist monitor and reassess 01/15/17 10:[address] Ruvalcaba and left voice message Spoke with Dr. Valle, He suggested a carotid doppler 01/15/17 10:[address] Ruvalcaba who wasn't in office but was familiar with the patient. He believes current symptoms are a continuation of patient's chronic symptoms Doesn't feel doppler will add anything. Wants him to follow up in his office on to review MRI results 01/15/17 10:43 CBC WBC 2.9 K/mm3 (4.0-10.0) L 01/15/17 09:45 RBC 4.13 M/mm3 (4.00-5.60) 01/15/17 09:45 Hgb 13.4 GM/dL (11.7-16.9) 01/15/17 09:45 Hct 41.6 % (35.4-49) 01/15/17 09:45 MCV 100.6 fl (80-96) H 01/15/17 09:45 MCH 32.4 pg (25.7-33.7) 01/15/17 09:45 MCHC 32.2 g/dl (32.0-35.9) 01/15/17 09:45 RDW 12.9 % (11.9-15.9) 01/15/17 09:45 Plt Count 135 K/MM3 (134-434) 01/15/17 09:45 MPV 8.5 fl (7.5-11.1) 01/15/17 09:45 Neutrophils % 49.4 % (42.8-82.8) 01/15/17 09:45 Lymphocytes % 37.3 % (8-40) D 01/15/17 09:45 Monocytes % 11.0 % (3.8-10.2) H 01/15/17 09:45 Eosinophils % 1.6 % (0-4.5) 01/15/17 09:45 Basophils % 0.7 % (0-2.0) 01/15/17 09:45 Concerning for decreased WBCs. Patient is consistently low WBCs. Discuss with patient and instruct him follow up with his PCP. CMP Sodium 143 mmol/L (136-145) 01/15/17 09:45 Potassium 3.8 mmol/L (3.5-5.1) 01/15/17 09:45 Chloride 106 mmol/L (98-107) 01/15/17 09:45 Carbon Dioxide 32 mmol/L (21-32) 01/15/17 09:45 Anion Gap 5 (8-16) L 01/15/17 09:45 BUN 8 mg/dL (7-18) D 01/15/17 09:45 Creatinine 0.9 mg/dL (0.7-1.3) 01/15/17 09:45 Creat Clearance w eGFR > 60 (>60) 01/15/17 09:45 Random Glucose 92 mg/dL (74-106) 01/15/17 09:45 Calcium 8.8 mg/dL (8.5-10.1) 01/15/17 09:45 Total Bilirubin 0.5 mg/dL (0.2-1.0) D 01/15/17 09:45 AST 12 U/L (15-37) L D 01/15/17 09:45 ALT 28 U/L (12-78) 01/15/17 09:45 Alkaline Phosphatase 102 U/L (45-117) 01/15/17 09:45 Total Protein 6.9 g/dl (6.4-8.2) 01/15/17 09:45 Albumin 3.5 g/dl (3.4-5.0) 01/15/17 09:45 Decreased anion gap and AST are again consistent with the patients baseline. Have patient follow up abnormal lab values with PCP. 01/15/17 11:07 CXR: No acute pathology, no change from 06/22/2016 EKG reviewed, sinus rhythm, no st-elevation; not substantially changed from 06/2201/15/17 11:33 Laboratory Tests 01/15/17 09:45 Troponin I < 0.02 Reassuring for ACS Patient to be discharged with followup. Provided patient with copies of all lab results and instructed him to follow up and discuss these with Dr. Valle. Return precautions were given and patient acknowledged understanding and agreement with discharge. *DC/Admit/Observation/Transfer Diagnosis at time of Disposition: Dizziness Hypertension Qualifiers: Hypertension type: unspecified Qualified Code(s): I10 - Essential (primary) hypertension - Discharge Dispostion Disposition: HOME Condition at time of disposition: Stable Admit: No - Referrals Referrals: Vic Valle [Primary Care Provider] - - Patient Instructions Printed Discharge Instructions: DI for High Blood Pressure, How to Monitor Your Blood Pressure at Home, DI for Migraine Additional Instructions: As we discussed, you need to call and make an appointment with Dr. Valle for Wednesday. Discuss with him the lab results you were given and treatment options for your high blood pressure. You need to call and make an appointment with your Neurologist, Dr. Ruvalcaba. When I spoke with him today he said he could see you next to review the results of your MRI. Ask Dr. Ruvalcaba if a medication called "triptans" would be beneficial for your headaches. Please return to the emergency department if your symptoms get worse or you develop any new or concerning symptoms including a loss of consciousness, severe headache that will not go away with pain medications, confusion or chest pain. If you do not feel safe driving yourself to the emergency department call 911 immediately.
[2017-01-15] MEDS ORDERED: SODIUM CHLORIDE 1,000 ML IV STA (09:23)
[2017-01-15] MEDS ORDERED: ACETAMINOPHEN 1000 MG/100 ML VIAL (NON FORMULARY) IVPB ONE (09:24)
[2017-01-15] MEDS ORDERED: METOCLOPRAMIDE HCL INJECTION 10 MG/2 ML VIAL IVPB ONE (09:24)
[2017-01-15] MEDS ORDERED: ACETAMINOPHEN INJECTION 100 ML IVPB ONE (09:45)
[2017-01-15] MEDS ORDERED: METOCLOPRAMIDE HCL INJECTION 10 MG/2 ML VIAL ONE (09:45)
--- NOTE | 2017-01-15 09:49 | PDOC ---
Attending Attestation - Resident Resident Name: Domingo Delgado - ED Attending Attestation I have performed the following: I have examined & evaluated the patient, The case was reviewed & discussed with the resident, I agree w/resident's findings & plan, Exceptions are as noted - HPI HPI: 01/15/17 09:44 56-year-old male with a history of hypertension, vertigo, migraine headache, chronic pre-syncopal symptoms and GERD who presents with elevated blood pressure this morning associated with feeling like he is going to pass out. He reports when he woke up this morning he felt generally weak and felt like he would pass out, checked his blood pressure and found it to be 179/104 at which point he took his propranolol and went to work. He also reports he has a 5/10 bitemporal headache since yesterday which is typical of his usual migraine. HE recently received botox injections 12/30 and was put on tegratol for his migraines and this has not helped. He reports that when he went to work and told his co-workers how he was feeling he was advised to come to the emergency department to be checked out. He states he has been having these symptoms of feeling weak and feeling like he will pass out as well as migraines since 2013 He is currently being worked up by Dr. Ruvalcaba from neurology and by his primary care doctor. 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 - Physicial Exam PE: 01/15/17 09:47 GENERAL: Awake, alert, and fully oriented, in no acute distress HEAD: No signs of trauma EYES: PERRLA, EOMI, sclera anicteric, conjunctiva clear ENT: Auricles normal inspection, hearing grossly normal, nares patent, oropharynx clear without exudates. Moist mucosa NECK: Normal ROM, supple, no lymphadenopathy, JVD, or masses LUNGS: Breath sounds equal, clear to auscultation bilaterally. No wheezes, and no crackles HEART: Regular rate and rhythm, normal S1 and S2, no murmurs, rubs or gallops ABDOMEN: Soft, nontender, normoactive bowel sounds. No guarding, no rebound. No masses EXTREMITIES: Normal range of motion, no edema. No clubbing or cyanosis. No cords, erythema, or tenderness NEUROLOGICAL: Normal speech, cranial nerves intact, negative pronator drift, 5/ 5 strength in all 4 extremities, normal sensation to light touch in all 4 extremities, normal cerebellar exam, normal gait, normal reflexes and tone SKIN: Warm, Dry, normal turgor, no rashes or lesions noted. - Medical Decision Making 01/15/17 09:47 56-year-old male with a history of months of lightheadedness, weakness, headache also history of migraines presents with elevated blood pressure this morning. Blood pressure here is slightly elevated at 152/98. Given chronicity of symptoms, it is unclear what the etiology of the symptoms are however patient just had an MRI with neurology and is actively being followed by his primary care doctor. Will check basic labs and discuss disposition with his neurologist and primary doctor. -labs -headache tx -call Dr. Ruvalcaba -call Dr. SCOTT
[2017-01-15 10:01] LABS: BASOPHIL 0.7 % (0-2.0); EOSINOPHIL 1.6 % (0-4.5); MCH 32.4 pg (25.7-33.7); MCHC 32.2 g/dl (32.0-35.9); MEAN CELL VOLUME 100.6 fl (80-96); MEAN PLT VOLUME 8.5 fl (7.5-11.1); NEUTROPHILS 49.4 % (42.8-82.8); PLATELET COUNT 135 K/MM3 (134-434); RDW 12.9 % (11.9-15.9); WHITE BLOOD COUNT 2.9 K/mm3 (4.0-10.0)
[2017-01-15 10:21] LABS: ALBUMIN 3.5 g/dl (3.4-5.0); ALK PHOS 102 U/L (45-117); ANION GAP 5 (8-16); BILIRUBIN,TOTAL 0.5 mg/dL (0.2-1.0); CALCIUM 8.8 mg/dL (8.5-10.1); CO2 32 mmol/L (21-32); CREATININE 0.9 mg/dL (0.7-1.3); GLUCOSE,RANDOM 92 mg/dL (74-106); SGOT/AST 12 U/L (15-37); SGPT/ALT 28 U/L (12-78); TOT PROT 6.9 g/dl (6.4-8.2)
[2017-01-15 11:14] LABS: TROPONIN I < 0.02 ng/ml (0.00-0.05)
[2017-01-15 11:18] LABS: CPK 131 IU/L (39-308)
[2017-01-15 13:07] VITALS: BP 130/90; PULSE 69
--- NOTE | 2017-01-16 12:50 | EKG ---
Test Reason : Blood Pressure : / mmHG Vent. Rate : 070 BPM Atrial Rate : 070 BPM P-R Int : 212 ms QRS Dur : 108 ms QT Int : 390 ms P-R-T Axes : 063 -50 022 degrees QTc Int : 421 ms SINUS RHYTHM WITH 1ST DEGREE A-V BLOCK POSSIBLE LEFT ATRIAL ENLARGEMENT INCOMPLETE RIGHT BUNDLE BRANCH BLOCK LEFT ANTERIOR FASCICULAR BLOCK ABNORMAL ECG WHEN COMPARED WITH ECG OF 07-SEP-2016 15:25, NO SIGNIFICANT CHANGE WAS FOUND Confirmed by INGRIS RICE MD ([id number]) on 01/16/2017 12:49:47 PM Referred By: Confirmed By:INGRIS RICE MD
== END 2017-01-15 13:07 | disposition home or self-care (01) ==
LOC: JER 07:50
PROC: 3E033NZ Introduction of Analgesics, Hypnotics, Sedatives into Peripheral Vein, Percutaneous Approach (ICD-10-PCS; principal; 2017-01-15)
PROC: 3E033GC Introduction of Other Therapeutic Substance into Peripheral Vein, Percutaneous Approach (ICD-10-PCS; 2017-01-15)
PROC: 3E0337Z Introduction of Electrolytic and Water Balance Substance into Peripheral Vein, Percutaneous Approach (ICD-10-PCS; 2017-01-15)
DX: R42 Dizziness and giddiness (principal); I10 Essential (primary) hypertension
CPT/HCPCS: 36415; 71010-TC; 80053; 82550; 84484; 85025; 93005; 93010; 99282-25

== ENCOUNTER 2017-03-26 09:45 | Emergency (ER) | payer BC ==
[2017-03-26 09:55] VITALS: BP 145/84; PULSE 76; TEMP 97.6; BMI 23.7
[2017-03-26] MEDS ORDERED: ALBUTEROL SO4 2.5/IPRATROPIUM 0.5 INH SOL 3 ML VIAL.NEB. NEB ONE (11:15)
[2017-03-26] MEDS: ALBUTEROL SO4 2.5/IPRATROPIUM 0.5 INH SOL 3 ML VIAL.NEB. NEB SCH ×3 (11:23→12:02)
--- NOTE | 2017-03-26 11:26 | PDOC ---
History of Present Illness - General Chief Complaint: Shortness of Breath Stated Complaint: SOB, COUGH Time Seen by Provider: 03/26/17 11:01 History Source: Patient Exam Limitations: No Limitations - History of Present Illness Initial Comments: 03/26/17 11:15 This is a 56-year-old man with past medical history of migraines, hypertension, hyperlipidemia presents emergency Department with productive cough for one week. Patient states that today while walking his cough got worse which made him acutely short of breath which resolved spontaneously. Patient states she's been having a productive cough with white sputum since March 20. Patient contacted his primary doctor who prescribed him Cipro and send him for an EKG and chest x-ray on 03/25. Patient denies any fevers, chills, chest pain, dizziness, abdominal pain, nausea, vomiting. 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 Past History - Past Medical History Allergies/Adverse Reactions: Allergies Allergy/AdvReac Type Severity Reaction Status Date / Time doxycycline Allergy Severe "HIVES" Verified 03/26/17 11:31 Penicillins Allergy Severe "HIVES" Verified 03/26/17 11:31 Home Medications: Ambulatory Orders Propranolol HCl 10 mg PO BID 12/09/15 CVA: (vertigo) COPD: Yes (CHRONIC BRONCHITIS) Disorders: Yes (NEPHROLITHIASIS S/P ESWL) HTN: Yes Kidney Stones: Yes - Surgical History Orthopedic Surgery: Yes (RIGHT KNEE ARTHROSCOPY) - Immunization History Immunization Up to Date: Yes - Suicide/Smoking/Psychosocial Hx Smoking Status: No Smoking History: Never smoked Have you smoked in the past 12 months: No Number of Cigarettes Smoked Daily: 0 Cigars Per Day: 0 Information on smoking cessation initiated: No Hx Alcohol Use: No Drug/Substance Use Hx: No Substance Use Type: None Hx Substance Use Treatment: No Review of Systems - Review of Systems Able to Perform ROS?: Yes Is the patient limited Amharic proficient: No Constitutional: No: Symptoms Reported HEENTM: No: Symptoms Reported Respiratory: Yes: See HPI Cardiac (ROS): No: Symptoms Reported ABD/GI: No: Symptoms Reported : No: Symptoms Reported Musculoskeletal: No: Symptoms Reported Integumentary: No: Symptoms Reported Neurological: No: Symptoms reported *Physical Exam - Vital Signs Last Vital Signs Temp Pulse Resp BP Pulse Ox 97.6 F 76 18 145/84 100 03/26/17 09:51 03/26/17 09:51 03/26/17 09:51 03/26/17 09:51 03/26/17 09:51 - Physical Exam General Appearance: Yes: Appropriately Dressed. No: Apparent Distress HEENT: positive: Normal ENT Inspection Neck: positive: Trachea midline, Supple Respiratory/Chest: positive: Lungs Clear. negative: Respiratory Distress, Accessory Muscle Use Cardiovascular: positive: Regular Rhythm, Regular Rate, S1, S2. negative: Edema , JVD, Murmur Gastrointestinal/Abdominal: positive: Normal Bowel Sounds, Soft. negative: Tender Musculoskeletal: positive: Normal Inspection. 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 Patient states that today while walking his cough got worse which made him acutely short of breath which resolved spontaneously. Patient states she's been having a productive cough with white sputum since March 20. Patient contacted his primary doctor who prescribed him Cipro and send him for an EKG and chest x-ray on 03/25. Patient denies any fevers, chills, chest pain, dizziness, abdominal pain, nausea, vomiting. Respirations even and unlabored. Lungs clear to auscultation bilaterally. Upper respiratory congestion appreciated. No sinus tenderness. ENT exam normal. Abdomen soft nontender nondistended. Differential diagnosis: Upper respiratory infection versus bronchitis I will give the patient to a times 3. I will review the x-ray taken yesterday here and reevaluate after the treatments. If chest x-ray is without pathology, I will discharge the patient to follow-up with primary doctor next week. 03/26/17 11:39 RAD/CHEST PA LAT Evaluate for pneumonia. Chest 2 views. Comparison study January 15, 2017. Unremarkable contour of the cardiomediastinal silhouette. The lungs are well aerated. No evidence of pneumonia atelectasis. No evidence of blunting of the costophrenic angles. No pleural effusion or pneumothorax is seen. Elevated right diaphragm. Intact visualized osseous structures. Mild degree changes of AC joints. No bulky hilar adenopathy, lung mass, lung nodule or cavitary lesion is seen within the limitation of examination. Impression. No evidence of active pneumonitis disease. Reported By: Kavin Yu MD [id number] 03/26/17 12:17 Patient states relief of symptoms status post MLS treatment. Given the chest x- ray was normal without any evidence of acute pulmonary disease on 1220 I will discharge the patient. Patient states has follow-up appointment with his primary doctor on Wednesday of next week. Patient has been instructed to keep well-hydrated, take Tylenol for fever and/or pain, and to take Mucinex to help expectorate mucus. Patient verbalized understanding of all discharge instructions I will discharge the patient home. *DC/Admit/Observation/Transfer Diagnosis at time of Disposition: Bronchitis - Discharge Dispostion Disposition: HOME Condition at time of disposition: Stable Admit: No - Referrals Referrals: Vic Valle [Primary Care Provider] - - Patient Instructions Additional Instructions: Take Tylenol as needed for fever or pain. Follow manufacturers instructions for appropriate dosage. You can stop taking antibiotics prescribed [facility] primary doctor. Take Mucinex as directed by manufacturers instructions were you may use Robitussin if he prefers syrup over pills. Keep appointment with her primary doctor next week for follow-up. Use of a humidifier while sleeping may help alleviate some of the symptoms are experiencing. Keep well-hydrated. Return to emergency department for fevers, chills, shortness of breath, chest pain, dizziness or any other concerns. Thank you very much for choosing us to provide your emergent healthcare needs. - Post Discharge Activity
== END 2017-03-26 12:36 | disposition home or self-care (01) ==
LOC: JER 09:45
PROC: 3E0F7GC Introduction of Other Therapeutic Substance into Respiratory Tract, Via Natural or Artificial Opening (ICD-10-PCS; principal; 2017-03-26)
DX: J40 Bronchitis, not specified as acute or chronic (principal); I10 Essential (primary) hypertension; E78.5 Hyperlipidemia, unspecified; G43.909 Migraine, unspecified, not intractable, without status migrainosus
CPT/HCPCS: 99281-25

== ENCOUNTER 2020-04-09 10:45 | Emergency (ER) | payer BC, OTHER ==
[2020-04-09 10:58] VITALS: BMI 22.9
[2020-04-09] MEDS ORDERED: ONDANSETRON 4 MG/2 ML VIAL IVPUSH ONE (12:23)
[2020-04-09] MEDS ORDERED: FAMOTIDINE 20 MG/50 ML IVPB 20 MG/50 ML MG IVPB ONE ×2 (12:23→12:35)
[2020-04-09] MEDS ORDERED: ACETAMINOPHEN 1000 MG/100 ML BAG IVPB ONE (12:24)
[2020-04-09] MEDS ORDERED: DICYCLOMINE HCL 10 MG CAPSULE PO ONE (12:24)
[2020-04-09] MEDS ORDERED: SODIUM CHLORIDE 0.9% 1000 ML INFUS.BAG IV ONE (12:24)
[2020-04-09] MEDS ORDERED: DICYCLOMINE HCL 10 MG CAPSULE ONE (12:35)
[2020-04-09] MEDS ORDERED: ACETAMINOPHEN INJECTION 100 ML IVPB ONE (12:35)
[2020-04-09] MEDS ORDERED: ONDANSETRON 4 MG/2 ML VIAL ONE (12:35)
[2020-04-09] MEDS ORDERED: METOCLOPRAMIDE HCL INJECTION 10 MG/2 ML VIAL IVPB ONE (12:44)
[2020-04-09] MEDS ORDERED: METOCLOPRAMIDE HCL INJECTION 10 MG/2 ML VIAL ONE (12:49)
[2020-04-09 13:09] LABS: BASO % 0.2 % (0-2.0); EOS % 0.7 % (0-4.5); HEMATOCRIT 40.6 % (35.4-49); HEMOGLOBIN 13.8 GM/dL (11.7-16.9); LYMPH % 34.1 % (8-40); MCH 34.5 pg (25.7-33.7); MEAN CELL VOLUME 101.6 fl (80-96); MEAN PLT VOLUME 9.2 fl (7.5-11.1); MONO % 9.7 % (3.8-10.2); NEUT % 55.3 % (42.8-82.8); PLATELET COUNT 142 K/MM3 (134-434); RDW 13.1 % (11.9-15.9)
[2020-04-09 13:33] LABS: ALBUMIN 3.7 g/dl (3.4-5.0); BLOOD UREA NITROGEN 15.2 mg/dL (7-18); CALCIUM 9.1 mg/dL (8.5-10.1); MAGNESIUM 2.1 mg/dL (1.8-2.4)
[2020-04-09 13:36] LABS: CREATININE 1.1 mg/dL (0.55-1.3)
[2020-04-09 13:38] LABS: BILIRUBIN,TOTAL 0.5 mg/dL (0.2-1); TOT PROT 7.3 g/dl (6.4-8.2)
[2020-04-09] MEDS ORDERED: KETOROLAC TROMETHAMINE 30 MG/1 ML VIAL IM ONE (15:01)
[2020-04-09] MEDS ORDERED: KETOROLAC TROMETHAMINE 30 MG/1 ML VIAL IVPUSH ONE (15:05)
[2020-04-09] MEDS ORDERED: KETOROLAC TROMETHAMINE 30 MG/1 ML VIAL ONE (15:08)
[2020-04-09 15:26] VITALS: BP 151/81; PULSE 65; TEMP 98
== END 2020-04-09 15:45 | disposition home or self-care (01) ==
LOC: JER 10:45
PROC: 3E0333Z Introduction of Anti-inflammatory into Peripheral Vein, Percutaneous Approach (ICD-10-PCS; principal; 2020-04-09)
PROC: 3E033GC Introduction of Other Therapeutic Substance into Peripheral Vein, Percutaneous Approach (ICD-10-PCS; 2020-04-09)
PROC: 3E0333Z Introduction of Anti-inflammatory into Peripheral Vein, Percutaneous Approach (ICD-10-PCS; 2020-04-09)
PROC: 3E033GC Introduction of Other Therapeutic Substance into Peripheral Vein, Percutaneous Approach (ICD-10-PCS; 2020-04-09)
PROC: 3E033GC Introduction of Other Therapeutic Substance into Peripheral Vein, Percutaneous Approach (ICD-10-PCS; 2020-04-09)
DX: R10.9 Unspecified abdominal pain (principal)
CPT/HCPCS: 36415; 74177-TC; 80053; 82550; 82553; 83605; 83690; 83735; 84484; 85025; 93005; 93010; 99285-25; J0131; Q9967